=== PATIENT | female | born 1945 | race Two or more races ===

== ENCOUNTER 2019-02-18 21:28 | Inpatient (IN) | payer MEDICARE ==
[~2019-02-18] VITALS: Ht 170.2 cm; Wt 92.1 kg
--- NOTE | 2019-02-18 21:59 | NUR ---
BIBA W/ C/O CP AND H/A AND WEAKNESS. S/P BACK SX ON THRS 02/13/19. NOTED W/ HEALING SX SCAR ON ANTERIOR NECK . PT PLACED ON A MONITOR, VSS.
--- NOTE | 2019-02-18 22:10 | NUR ---
DE. ZUÑIGA AT THE BED SIDE
[2019-02-18 22:22] LABS: BASOPHILS % (AUTO) 0.4 % (0.0-2.0); EOSINOPHILS % (AUTO) 0.6 % (0.0-6.0); HEMATOCRIT 38 % (33-45); HEMOGLOBIN 12.6 g/dL (11.5-14.8); LYMPHOCYTES # (AUTO) 0.8 /CMM (0.8-4.8); LYMPHOCYTES % (AUTO) 8.4 % (20.0-44.0); MEAN CORPUSCULAR HGB CONC 33 g/dl (31.0-36.0); MEAN CORPUSCULAR VOLUME 88 fL (82-100); MONOCYTES # (AUTO) 1.4 /CMM (0.1-1.30); MONOCYTES % (AUTO) 13.6 % (2.0-12.0); NEUTROPHILS # (AUTO) 7.7 /CMM (1.8-8.9); PLATELET COUNT (AUTO) 210 /CMM (150-450); RED BLOOD CELL COUNT(AUTO) 4.33 MIL/uL (4.0-5.2)
[2019-02-18] MEDS ORDERED: HYDROMORPHONE 1 MG/1 ML DISP.SYRIN ONE (22:24)
[2019-02-18] MEDS ORDERED: ONDANSETRON HCL/PF 4 MG/2 ML VIAL ONE (22:24)
[2019-02-18] MEDS ORDERED: ACETAMINOPHEN ES 500 MG TABLET ONE (22:25)
[2019-02-18] MEDS ORDERED: ONDANSETRON HCL/PF - ER 4 MG/2 ML VIAL IV ONE (22:30)
[2019-02-18] MEDS ORDERED: IV NS 0.9% 500 ML BAG IV ONE (22:30)
[2019-02-18] MEDS ORDERED: ACETAMINOPHEN ES 500 MG TABLET PO ONE (22:30)
[2019-02-18] MEDS ORDERED: HYDROMORPHONE 1 MG/1 ML DISP.SYRIN IV ONE (22:30)
[2019-02-18 22:36] LABS: CALCIUM, SERUM 9.9 mg/dL (8.5-10.1); CARBON DIOXIDE 28 mmol/L (21-32); CHLORIDE 98 mmol/L (98-107); CREATININE 0.9 mg/dL (0.6-1.3); GLUCOSE 168 mg/dL (74-106); POTASSIUM 4.6 mmol/L (3.5-5.1); SODIUM SERUM 132 mmol/L (136-145); UREA NITROGEN, BLOOD 23 mg/dL (7-18)
[2019-02-18 22:49] LABS: ALANINE AMINOTRANSFERASE 23 U/L (12-78); ALBUMIN 2.9 g/dL (3.4-5.0); ALKALINE PHOSPHATASE 159 U/L (46-116); ASPARTATE AMINOTRANSFERASE 29 U/L (15-37); BILIRUBIN,DIRECT 0.4 mg/dL (0.0-0.2); BILIRUBIN,TOTAL 0.8 mg/dL (0.2-1.0); TOTAL PROTEIN, SERUM 7.1 g/dL (6.4-8.2)
[2019-02-18] MEDS ORDERED: VANCOMYCIN 1 GM in IV D5W 250 ML IV ONE (23:00)
[2019-02-18] MEDS ORDERED: CEFEPIME 1 GM in IV D5W 50 ML IV ONE (23:00)
[2019-02-18] MEDS ORDERED: VANCOMYCIN 1 GM VIAL ONE (23:12)
[2019-02-18] MEDS ORDERED: CEFEPIME 1 GM VIAL ONE (23:12)
--- NOTE | 2019-02-18 23:15 | NUR ---
end time for cefepim: [id number]
[2019-02-18] MEDS ORDERED: ZOLPIDEM TARTRATE 5 MG TABLET PO PRN (23:30)
[2019-02-18] MEDS ORDERED: Z GUARD REMEDY 2 OZ OINT TP PRN (23:30)
[2019-02-18] MEDS ORDERED: MAGNESIUM HYDROXIDE 30 ML UDC PO PRN (23:30)
[2019-02-18] MEDS ORDERED: ONDANSETRON HCL/PF 4 MG/2 ML VIAL IVP PRN (23:30)
[2019-02-18] MEDS ORDERED: HYDROCODONE/APAP 5/325MG 1 EACH TABLET PO PRN (23:30)
[2019-02-18] MEDS ORDERED: MAG HYDROX/AL HYDROX/SIMETH 30 ML UDC PO PRN (23:30)
[2019-02-18] MEDS ORDERED: ZOSYN IVPB 3.375 G in IV D5W 50ml IV ONE (23:45)
[2019-02-19] MEDS ORDERED: LEVO88TA5 PO (00:29)
[2019-02-19] MEDS ORDERED: CELE200C PO (00:29)
[2019-02-19] MEDS ORDERED: CARI350T PO (00:29)
[2019-02-19 00:35] VITALS: BP 146/61
--- NOTE | 2019-02-19 00:35 | NUR ---
MS/RN NEW ADMISSION NOTES RECEIVED PATIENT FROM ER ACCOMPANIED BY ER ATTENDANT ARRIVED ON A GURNEY, WITH FAMILY, ALERT, ORIENTED X4 ABLE TO VERBALZIE NEEDS, PARTICIPATIVE TO CARE, CAN WALK WITH ASSISTANCE WITH UNSTEASDY GAIT, REQUIRE OXYGEN AT 2LITER FOR COMFORT, VERBALZIED FEELS MUCH BETTER, PAIN OF 5/10 ON RIGHT LEG BUT TOLERABLE. REPORTED WANTED TO GET SOME SLEEP. BELONGINGS CHECKED, WITH EYE GLASSES, NECK INCISION CHECK AND TOOK PICTURE, SKIN INTACT, HOME MEDICATIONS REPORTED, DR. MAGANA IS THE ADMITTING MD, WITH DX OF PNA. IV ANTIBIOTIC GIVEN AT ER VANCO AND CEFEPIME, WITH PENDING ZOSYN AWAITING FOR PHARMACY DOZING. WILL MONITOR. BED LOCKED, CALL LIGHTS WITHIN REACH, OFFERED AND PROVIDED FLUIDS. KEPT MOUTH MOIST. ASPIRATIONS PRECAUTION PROTOCOL, SAFETY MEASURES CHECK, BED LOCKED, CALL LIGTHS WITHIN REACHFAMILY PROVIDED TEL. [phone] AND JIM DAUGHTER IN LAW [phone], PCP DR ZAYAS. LEFT AC 18 HEP LOCK,
--- NOTE | 2019-02-19 00:40 | NUR ---
PT WAS TRANSFERRED TO THIRD FLOOR IN STABLE CONDITION
--- NOTE | 2019-02-19 02:35 | NUR ---
ms/rn notes PER PHARMACY TO ADMINISTER ONE DOSE OF ZOSYN AND PHARMACY TO DOSE IN AM/
[2019-02-19 02:39] VITALS: BP 146/61
[2019-02-19] MEDS ORDERED: PIPERACILLIN /TAZOBACTAM 3.375 G VIAL IV ONE (02:39)
--- NOTE | 2019-02-19 03:50 | NUR ---
ms/rn notes patient urine collected,
[2019-02-19 04:29] LABS: APPEARANCE,URINE CLEAR (CLEAR); BILIRUBIN,URINE NEGATIVE (NEGATIVE); BLOOD, URINE SMALL Ery/uL (NEGATIVE); COLOR,URINE YELLOW (YELLOW); KETONES,URINE TRACE (NEGATIVE); LEUKOCYTE ESTERASE ,URINE NEGATIVE (NEGATIVE); NITRITE, URINE NEGATIVE (NEGATIVE); PROTEIN,URINE NEGATIVE (NEGATIVE); UGLUCOSE NEGATIVE (NEGATIVE); UROBILINOGEN,URINE 0.2 EU/dL (0.2)
[2019-02-19 04:35] LABS: BACTERIA,URINE Few /HPF (None Seen); SQUAMOUS EPITHELIAL CELL,UR Few /HPF (None Seen)
[2019-02-19 06:23] LABS: BASOPHILS % (AUTO) 0.5 % (0.0-2.0); EOSINOPHILS % (AUTO) 1.6 % (0.0-6.0); HEMATOCRIT 37 % (33-45); HEMOGLOBIN 12.3 g/dL (11.5-14.8); LYMPHOCYTES # (AUTO) 1.5 /CMM (0.8-4.8); LYMPHOCYTES % (AUTO) 15.7 % (20.0-44.0); MEAN CORPUSCULAR HGB CONC 34 g/dl (31.0-36.0); MEAN CORPUSCULAR VOLUME 88 fL (82-100); MONOCYTES # (AUTO) 1.7 /CMM (0.1-1.30); MONOCYTES % (AUTO) 17.3 % (2.0-12.0); NEUTROPHILS # (AUTO) 6.3 /CMM (1.8-8.9); NEUTROPHILS % (AUTO) 64.9 % (43.0-81.0); PLATELET COUNT (AUTO) 196 /CMM (150-450); WHITE BLOOD COUNT (AUTO) 9.7 K/uL (4.3-11.0)
--- NOTE | 2019-02-19 06:38 | NUR ---
MS/RN NOTES PATIENT IN BED, ABLE TO AMBULATE WITH ASSISTANCE, NO PAIN VERBALIZED, RESPIRATIONS EVEN AND UNLABORED, ON OXYGEN VIA NC AT 2L FOR COMFORT. SKIN WARM TO TOUCH, IV ANTIBIOTIC ZOSYN ADMINISTERED, TOLERATED WITH NO CHANGES. BED LOCKED, CALL LIGHTS WITHIN REACH, WILL MONITOR AND ENDORSE TO AM RN FOR SHAREE.
[2019-02-19 06:45] LABS: CALCIUM, SERUM 9.4 mg/dL (8.5-10.1); CREATININE 0.8 mg/dL (0.6-1.3); MAGNESIUM 2.2 mg/dL (1.8-2.4); PHOSPHORUS 3.7 mg/dL (2.5-4.9); POTASSIUM 4.3 mmol/L (3.5-5.1)
[2019-02-19 07:10] LABS: THYROID STIMULATING HORMONE 0.849 uIU/mL (0.358-3.74)
--- NOTE | 2019-02-19 07:28 | NUR ---
MS RN NOTES PATIENT RECEIVED RESTING INSIDE ROOM. AWAKE, ALERT AND ORIENTED X 4, VERBALLY RESPONSIVE AND RESPONDS TO VERBAL AND TACTILE STIMULI. NO ACUTE DISTRESS. PATIENT CALM AND RELAXED. VERIFIED CODE STATUS WITH PATIENT, PATIENT VERBALIZED THAT SHE WANTS TO BE DNR/DNI. PATIENT VERBALIZED THAT SHE HAS A COPY OF HER POLST AT DR ZAYAS'S OFFICE. WILL CALL DR ZAYAS'S OFFICE ONCE OFFICE IS OPEN TO REQUEST FOR COPY. WILL CONTINUE TO MONITOR. BED LOCKED AND IN LOW POSITION. BILATERAL UPPER SIDE RAILS UP AND LOCKED. CALL LIGHT WITHIN EASY REACH
[2019-02-19] MEDS ORDERED: FEE PK DOSING 1 MIN EA MC ONE (07:29)
[2019-02-19 08:00] VITALS: BP 144/66
[2019-02-19] MEDS: PIPERACILLIN /TAZOBACTAM 3.375 G in IV D5W 50 ML IV SCH ×3 (09:26→20:18)
[2019-02-19] MEDS ORDERED: HYDROMORPHONE 1 MG/1 ML DISP.SYRIN IV PRN ×2 (11:30→12:30)
[2019-02-19] MEDS: VANCOMYCIN 1 GM in IV D5W 250 ML IV SCH (11:45)
[2019-02-19] MEDS: Potassium Chloride 20 MEQ in IV D5/ 0.9% NACL 1,000 ML IV SCH (14:53)
[2019-02-19 16:00] VITALS: BP 131/72
[2019-02-19] MEDS: ALBUTEROL HALF STRENGTH 1.25 MG/3 ML VIAL.NEB NEB SCH ×3 (16:00→23:10)
[2019-02-19] MEDS: HYDROMORPHONE INJ 2 MG/ML DISP.SYRIN IV PRN ×2 (17:06→22:00)
--- NOTE | 2019-02-19 19:05 | NUR ---
MS RN NOTES PATIENT RESTING INSIDE ROOM. AWAKE, ALERT AND ORIENTED X 4, NO ACUTE DISTRESS. NO CHANGES IN LOC NOTED. DENIES ANY PAIN OR DISCOMFORT. IVF INFUSING AND PATIENT TOLERATING WELL. WILL ENDORSE TO INCOMING SHIFT FOR SHAREE. BED LOCKED AND IN LOW POSITION. BILATERAL UPPER SIDE RAILS UP AND LOCKED. CALL LIGHT WITHIN EASY REACH
--- NOTE | 2019-02-19 19:26 | NUR ---
MS/RN OPENING NOTES RECEIVED PATIENT SITTING IN BED, HAD DINNER, ABLE TO VERBALIZE NEEDS, RT AT BEDSIDE, PATIENT RESTING COMFORTABLY IN BED, ABLE TO REPOSTION WITH SUPERVISION. PARTICIPATIVE WITH CARE. BED LOCKED, CALL LIGHTS WITHIN REACH, DISCUSSED PLAN OF CARE, REQUEST TO INFORM MD REGARDING HOME MEDICATIONS TRAMADOL AND REPORTED HOME MEDICATIONS AWAITING FOR MD CALL BACK. RECEIVED REPORT FROM AM RN FOR SHAREE.
[2019-02-19 20:00] VITALS: BP 161/108
--- NOTE | 2019-02-19 21:45 | NUR ---
MS/RN NOTES MD ORDER FOR NGT PLACEMENT, INFORMED PATIENT AND PROVIDED INTERVENTION AND PLACEMENT CHECK WITH ANOTHER RN, CHEST XRAY ORDER TO CONFIRM. Addendum: 02/20/19 at 0206 by NORBERT LIRIANO RN PLS DISREGARD FOR ANOTHER
--- NOTE | 2019-02-19 22:04 | NUR ---
ms/rn notes patient in severe pain, grimace, guarding and headache and pain in generalized part of body requesting prn med dilaudid ivpp to monitor.
[2019-02-20] MEDS: VANCOMYCIN 1 GM in IV D5W 250 ML IV SCH (00:12)
[2019-02-20] MEDS: PIPERACILLIN /TAZOBACTAM 3.375 G in IV D5W 50 ML IV SCH ×2 (02:30→08:52)
[2019-02-20] MEDS: Potassium Chloride 20 MEQ in IV D5/ 0.9% NACL 1,000 ML IV SCH (02:31)
[2019-02-20] MEDS: ACETAMINOPHEN 325 MG TABLET PO PRN ×2 (02:37→17:57)
[2019-02-20] MEDS: ALBUTEROL HALF STRENGTH 1.25 MG/3 ML VIAL.NEB NEB SCH ×6 (03:04→22:42)
--- NOTE | 2019-02-20 05:56 | NUR ---
MS/RN NOTES PATIENT HAD ONE BM TODAY.
--- NOTE | 2019-02-20 06:24 | NUR ---
MS/RN NOTES PATIENT IN BED ABLE TO VERBALIZE NEEDS, ALERT X3, SELF MOTIVATED AND PARTICIPATIVE WITH CARE, ON PAIN MEDICATION MONITORING, ON BREATHING TREATMENT ROUTINE, IV ANTIBIOTIC ADMINISTERED WITH NO SS OF COMPLICATION. IV ON LEFT HAND. WILL MONITOR. WILL ENDORSE TO AM RN FOR SHAREE. ON OXYGEN VIA NASAL CANULA, ASSISSTED FOR SAFETY.
[2019-02-20 06:27] LABS: BASOPHILS # (AUTO) 0.1 /CMM (0.0-0.2); BASOPHILS % (AUTO) 0.7 % (0.0-2.0); EOSINOPHILS % (AUTO) 2.4 % (0.0-6.0); HEMATOCRIT 36 % (33-45); LYMPHOCYTES # (AUTO) 1.2 /CMM (0.8-4.8); LYMPHOCYTES % (AUTO) 14.5 % (20.0-44.0); MEAN CORPUSCULAR HGB CONC 33 g/dl (31.0-36.0); MEAN CORPUSCULAR VOLUME 88 fL (82-100); MONOCYTES # (AUTO) 1.2 /CMM (0.1-1.30); MONOCYTES % (AUTO) 14.7 % (2.0-12.0); NEUTROPHILS # (AUTO) 5.4 /CMM (1.8-8.9); NEUTROPHILS % (AUTO) 67.7 % (43.0-81.0); PLATELET COUNT (AUTO) 225 /CMM (150-450); RED BLOOD CELL COUNT(AUTO) 4.08 MIL/uL (4.0-5.2); WHITE BLOOD COUNT (AUTO) 7.9 K/uL (4.3-11.0)
[2019-02-20 07:33] LABS: CALCIUM, SERUM 9.4 mg/dL (8.5-10.1); CREATININE 0.9 mg/dL (0.6-1.3); MAGNESIUM 2.1 mg/dL (1.8-2.4); POTASSIUM 3.9 mmol/L (3.5-5.1)
--- NOTE | 2019-02-20 07:42 | NUR ---
MS RN OPENING NOTES Received Patient resting in bed. VS stable with no acute distress. Breathing even and unlabored on room air with no respiratory distress with SPO2 95%. Denies pain. 24g PIV on left hand clean, intact, patent and flushing well. Safety precautions in place. Bed locked and set to lowest position with side rails x 2 up. All needs rendered at this time. Call light within reach. Will continue to monitor.
[2019-02-20 08:00] VITALS: BP 155/73
[2019-02-20] MEDS: AZITHROMYCIN 250 MG TABLET PO SCH (13:30)
[2019-02-20] MEDS: TRAMADOL HCL 50 MG TABLET PO PRN (13:40)
--- NOTE | 2019-02-20 14:36 | NUR ---
MS RN NOTES Inserted 22g PIV on JUVE x 1 attempt clean, intact, patent and flushing well. Patient tolerated well. Will continue to monitor.
[2019-02-20] MEDS: CEFTRIAXONE 1 G in IV D5W 50 ML IV SCH (15:01)
[2019-02-20 16:00] VITALS: BP 131/81
[2019-02-20] MEDS: LACTOBACILLUS RHAMNOSUS GG 1 EACH CAP.SPRINK PO SCH (17:09)
[2019-02-20] MEDS: HYDROMORPHONE INJ 2 MG/ML DISP.SYRIN IV PRN (18:48)
--- NOTE | 2019-02-20 19:44 | NUR ---
MS RN CLOSING NOTES Patient resting in bed. VS stable with no acute distress. Breathing even and unlabored on 2LPM with no respiratory distress. Administered Dilaudid 2mg IVP at 1848 per Patients request for chest/neck/right shoulder pain 01/16. 22g PIV on AMANDEEP clean, intact, patent and flushing well. Safety precautions in place. Bed locked and set to lowest position with side rails x 2 up. All needs rendered at this time. Call light within reach. Will endorse plan of care to oncoming shift.
--- NOTE | 2019-02-20 19:50 | NUR ---
MS RN OPENING NOTES: RECEIVED PATIENT IN BED AWAKE AND ALERT. A/OX4. YI SPEAKING, VERBALLY RESPONSIVE. VITAL SIGNS ARE STABLE AND NO S/S OF SOB AND S/S OF ACUTE DISTRESS NOTED. ON NC 2L, WITH AN O2 SAT OF 94%. BREATHING EVEN AND UNLABORED. NO COMPLAINS OF PAIN OR DISCOMFORT AT THIS TIME. IV ACCES ON THE LEFT UPPER ARM #22G IS INTACT AND PATENT AND FLUSHING WELL. SAFETY MEASURES ARE IN PLACE. BED IS IN LOW, LOCKED POSITION WITH SIDE RAILS UP X2. ALL NEEDS ATTENDED AT THIS TIME. CALL LIGHT WITHIN EASY REACH OF THE PATIENT. WILL CONTINUE TO MONITOR ACCORDINGLY.
[2019-02-20 20:00] VITALS: BP 128/74
[2019-02-20] MEDS ORDERED: CELECOXIB 100 MG CAPSULE PO SCH (22:00)
[2019-02-20] MEDS ORDERED: CARISOPRODOL 350 MG TABLET PO SCH (22:00)
[2019-02-21] MEDS: ALBUTEROL HALF STRENGTH 1.25 MG/3 ML VIAL.NEB NEB SCH ×3 (02:36→11:16)
[2019-02-21] MEDS: TRAMADOL HCL 50 MG TABLET PO PRN ×2 (05:10→12:35)
--- NOTE | 2019-02-21 05:10 | NUR ---
MS RN NOTES: PATIENT AWAKE IN BED, COMPLAINED OF HEADACHE RADIATING TO THE POSTERIOR PART OF THE HEAD. PAIN LEVEL AT 5 ON A SCALE OF 0-10. VITAL SIGNS STABLE. ULTRAM 50 MG WAS GIVEN ORDERED. TOLERATED WELL. WILL CONTINUE TO ASSESS AND MONITOR PATIENT.
--- NOTE | 2019-02-21 06:26 | NUR ---
MS RN CLOSING NOTES: PATIENT IN BED AWAKE AND ALERT. PATIENT REPORTS SHE FEELS VERY WELL RESTED FROM HER SLEEP. A/O X4. VERBALLY RESPONSIVE AND ABLE TO MAKE NEEDS KNOWN. VITAL SIGNS STABLE. NO SOB NOTED. NO S/S OF ACUTE DISTRESS. IV LINE ON THE LEFT UP #22G SL IS INTACT, CLEAN AND PATENT. ALL DUE MEDICATIONS WERE GIVEN ORDERED. TOLERATED WELL. KEPT PATIENT WARM AND COMFORTABLE THROUGH OUT THE SHIFT. PATIENT IS AMBULATORY AND USES BATHROOM INDEPENDENTLY. PATIENT DOES NOT COMPLAIN OF PAIN OR DISCOMFORT AT THIS TIME. ALL NURSING NEEDS MET AND ATTENDED. SAFETY MEASURES KEPT IN PLACE. BED IS IN LOW, LOCKED POSITION WITH SIDE RAILS UP X2. CALL LIGHT WITHIN REACH. WILL ENDORSE TO DAY SHIFT NURSE FOR SHAREE.
[2019-02-21 06:35] LABS: BASOPHILS # (AUTO) 0.1 /CMM (0.0-0.2); BASOPHILS % (AUTO) 1.1 % (0.0-2.0); EOSINOPHILS % (AUTO) 6.4 % (0.0-6.0); HEMATOCRIT 33 % (33-45); HEMOGLOBIN 11.1 g/dL (11.5-14.8); LYMPHOCYTES # (AUTO) 1.6 /CMM (0.8-4.8); LYMPHOCYTES % (AUTO) 27.1 % (20.0-44.0); MEAN CORPUSCULAR HGB CONC 34 g/dl (31.0-36.0); MEAN CORPUSCULAR VOLUME 87 fL (82-100); MONOCYTES # (AUTO) 0.7 /CMM (0.1-1.30); MONOCYTES % (AUTO) 12.3 % (2.0-12.0); NEUTROPHILS # (AUTO) 3.1 /CMM (1.8-8.9); NEUTROPHILS % (AUTO) 53.1 % (43.0-81.0); PLATELET COUNT (AUTO) 232 /CMM (150-450); RED BLOOD CELL COUNT(AUTO) 3.79 MIL/uL (4.0-5.2); WHITE BLOOD COUNT (AUTO) 5.9 K/uL (4.3-11.0)
[2019-02-21 07:09] LABS: CALCIUM, SERUM 9.4 mg/dL (8.5-10.1); CREATININE 0.7 mg/dL (0.6-1.3); POTASSIUM 3.6 mmol/L (3.5-5.1)
--- NOTE | 2019-02-21 07:15 | NUR ---
MS GIVENS OPENING NOTES RECEIVED PT IN BED. ASLEEP, EASILY AROUSED. A/O X3-4. PT ON SUPPLEMENTARY OXYGEN AT 2L VIA NC, WITH NO ACUTE RESPIRATORY DISTRESS NOTED. PT DENIES ANY PAIN OR DISCOMFORT AT THIS TIME. PT ALSO DENIES ANY CONCERNS OR QUESTIONS AT THIS MOMENT. PIV TO AMANDEEP G20 SL, FLUSHED WITH NS, INTACT AND OPERATIONAL. PT KEPT COMFORTABLE. CALL LIGHT KEPT WITHIN REACH. PT'S BED IN LOWEST, LOCKED POSITION WITH SR X3. WILL CONTINUE PLAN OF CARE. Addendum: 02/21/19 at 0746 by GRETA PAUL RN WRONG DOCUMENTATION
--- NOTE | 2019-02-21 07:20 | NUR ---
MS RN OPENING NOTES RECEIVED PT IN BED. ASLEEP, EASILY AROUSED. A/O X3-4. PT ON SUPPLEMENTARY OXYGEN AT 2L VIA NC, WITH NO ACUTE RESPIRATORY DISTRESS NOTED. PT DENIES ANY PAIN OR DISCOMFORT AT THIS TIME. PT ALSO DENIES ANY CONCERNS OR QUESTIONS AT THIS MOMENT. PIV TO JUVE G22 SL, FLUSHED WITH NS, INTACT AND OPERATIONAL. PT KEPT COMFORTABLE. CALL LIGHT KEPT WITHIN REACH. PT'S BED IN LOWEST, LOCKED POSITION WITH SR X3. WILL CONTINUE PLAN OF CARE.
[2019-02-21 08:00] VITALS: BP 151/71
[2019-02-21] MEDS: LACTOBACILLUS RHAMNOSUS GG 1 EACH CAP.SPRINK PO SCH (08:18)
--- NOTE | 2019-02-21 08:50 | NUR ---
MS RN NOTES SEEN AND EVALUATED BY DR ZAYAS. ORDERED TO D/C OXYGEN AND MONITOR SOB.
[2019-02-21] MEDS ORDERED: LEVOTHYROXINE SODIUM 88 MCG TABLET PO SCH (09:00)
--- NOTE | 2019-02-21 09:20 | NUR ---
MS RN NOTES PT TOLERATING RA, WITH NOACUTE RESPIRATORY DISTRESS. RESTING COMFORTABLY WELL.
[2019-02-21] MEDS: CEFTRIAXONE 1 G in IV D5W 50 ML IV SCH ×2 (12:13→12:49)
[2019-02-21] MEDS: AZITHROMYCIN 250 MG TABLET PO SCH (12:13)
--- NOTE | 2019-02-21 13:50 | NUR ---
MS [employer] LEGAL SECRETARY NOTES PT TO DISCHARGE HOME. ACCOMPANIED BY SON. PT AMBULATORY, A/O X4. PT TOLERATING RA, WITH NO ACUTE RESPIRATORY DISTRESS NOTED. PT DENIES ANY PAIN OR DISCOMFORT AT THE TIME OF DISCHARGE. PRESCRIPTIONS GIVEN TO PT. DISCHARGE INSTRUCTIONS AND BELONGING LIST SIGNED AND REVIEWED BY PT. SKIN INTACT. PT REFUSED FOR INCISION ON THE NECK TO BE TAKEN, NO DRESSINGS NOTED. INCISION SITE, CLEAN, DRY AND NO DRAINAGE PRESENT. PIV TO LAC G22, REMOVED AND DRESSING APPLIED. ALL NEEDS AND CARE PROVIDED TO PT. PT'S VITALS STABLE AND RECORDED. PT LEFT THE UNIT VIA WHEELCHAIR, ESCORTED BY ROVING HAULER WITH THE SON TO THE LOBBY. LEFT THE UNIT AT 1345. CN AND MD AWARE OF DISCHARGE.
--- NOTE | 2019-02-21 13:52 | NUR ---
MS RN NOTES PER PT GINGER NOT FOLLOWING [facility] AND SHE HAS OWN [facility]. /DR ZAYAS MADE AWARE WELL.
== END 2019-02-21 13:40 | disposition home health service (06) | DRG 177 ==
LOC: ER 21:29 → MED 23:09
PROVIDERS: ADMIT Student in an Organized Health Care Education/Training Program; ATTEND Legal Medicine
DX: J15.6 Pneumonia due to other Gram-negative bacteria (principal); G93.41 Metabolic encephalopathy; E44.0 Moderate protein-calorie malnutrition; E87.1 Hypo-osmolality and hyponatremia; E03.9 Hypothyroidism, unspecified; M19.90 Unspecified osteoarthritis, unspecified site; E88.09 Other disorders of plasma-protein metabolism, not elsewhere classified; Z68.31 Body mass index [BMI] 31.0-31.9, adult; Z98.890 Other specified postprocedural states; Z66 Do not resuscitate
CPT/HCPCS: 36415; 71045-TC; 80048-TC; 80061-TC; 80076-TC; 80202-TC; 81000-TC; 83605-TC; 83735-TC; 84100-TC; 84443-TC; 84484-TC; 85025-TC; 85730-TC; 87040-TC; 87081-TC; 87086-TC; 93307-TC; 94799-TC; 97116-TC; 97530-TC; G0378; J0692; J0696; J1170; J2405; J2543; J3370; J3480; J7040; J7042; J7050; J7060